=== PATIENT | male | born 1940 ===

== ENCOUNTER 2024-03-11 17:53 | Emergency (ER) | payer MEDICARE ==
[2024-03-11] MEDS ORDERED: AFRIN NASAL MIST 15 ML BOT ONE (18:00)
[2024-03-11] MEDS ORDERED: Tranexamic Acid 1,000 MG/10 ML VIAL ONE (18:00)
[2024-03-11 18:37] LABS: #Basophils 0.03 10x3/uL (0.0-0.2); #Monocytes 0.53 10x3/uL (0.0-1.1); #Neutrophils 5.24 10x3/uL (1.5-8.4); %Basophils 0.4 % (0.0-2.0); %Eosinophils 1.4 % (0.0-6.0); %Lymphocytes 14.5 % (18.0-47.0); %Monocytes 7.6 % (0.0-10.0); %Neutrophils 75.5 % (40.0-75.0); Hematocrit 41.7 % (38.8-50.0); Hemoglobin 13.9 g/dL (13.5-17.5); Mean Corpuscular HGB CONC 33.3 g/dL (32.0-36.0); Mean Corpuscular Hemoglobin 29.5 pg (27.0-33.0); Mean Corpuscular Volume 88.5 fL (81.2-95.1); Mean Platelet Volume 11.2 fL (7.4-10.4); Platelet Count 132 10x3/uL (150-450); RBC Distribution Width 13.7 % (11.5-14.5); Red Blood Cell (RBC) Count 4.71 10x6/uL (4.32-5.72)
[2024-03-11 18:44] LABS: INR-International Normal Ratio 2.9; PTT 34.3 sec (22.0-33.0); Prothrombin Time 29.7 sec (9.5-12.1)
[2024-03-11 19:00] LABS: ALT (SGPT) 22 U/L (8-55); AST (SGOT) 18 U/L (5-34); Albumin 3.6 g/dL (3.4-4.8); Alkaline Phosphatase 39 U/L (40-110); Anion Gap 15 mmol/L (10-20); BUN (Urea Nitrogen) 37 mg/dL (8.4-25.7); Bilirubin, Total 0.8 mg/dL (0.2-1.2); Calc. Creatinine Clearance 0 mL/min (70-130); Calcium 8.9 mg/dL (7.8-10.44); Carbon Dioxide 17 mmol/L (23-31); Chloride 110 mmol/L (98-107); Estimated GFR 63; Globulin 3.2 g/dL (2.4-3.5); Glucose 144 mg/dL (83-110); Potassium 4.4 mmol/L (3.5-5.1); Protein, Total 6.8 g/dL (5.8-8.1); Sodium 138 mmol/L (136-145)
== END 2024-03-11 20:23 | disposition home or self-care (01) ==
LOC: CSHERS 17:53
DX: R04.0 Epistaxis (principal); Z79.899 Other long term (current) drug therapy; Z79.82 Long term (current) use of aspirin; Z79.01 Long term (current) use of anticoagulants; I10 Essential (primary) hypertension; E78.5 Hyperlipidemia, unspecified
CPT/HCPCS: 80053; 85025; 85610; 85730; 93005; 96374